=== PATIENT | female | born 1970 | race Caucasian/White ===

== ENCOUNTER 2018-08-12 22:40 | Emergency (ER) | payer BC ==
[~2018-08-12] VITALS: Ht 162.6 cm; Wt 87.5 kg
[2018-08-12] MEDS ORDERED: EFFEXOR XR75 MG PO (22:48)
[2018-08-12] MEDS ORDERED: TOPAMAX 25 MG T25 M1 PO (22:49)
[2018-08-12] MEDS ORDERED: NOLVADEX20 MG PO (22:49)
[2018-08-12] MEDS ORDERED: LOMAIRA8 MG PO (22:50)
[2018-08-13 01:18] VITALS: BP 122/72
== END 2018-08-13 01:18 | disposition home or self-care (01) ==
LOC: M.ERS 22:40
DX: S63.591A Other specified sprain of right wrist, initial encounter (principal); Z91.040 Latex allergy status; Z91.018 Allergy to other foods; Z88.2 Allergy status to sulfonamides; Z90.89 Acquired absence of other organs; Z87.442 Personal history of urinary calculi; Z90.710 Acquired absence of both cervix and uterus; Z90.11 Acquired absence of right breast and nipple; W01.198A Fall on same level from slipping, tripping and stumbling with subsequent striking against other object, initial encounter; Y92.89 Other specified places as the place of occurrence of the external cause; Y93.02 Activity, running; Y99.8 Other external cause status